=== PATIENT | male | born 1965 | race Caucasian/White ===

== ENCOUNTER 2016-11-06 10:17 | Emergency (ER) | payer OTHER ==
[~2016-11-06] VITALS: Ht 160 cm; Wt 59.1 kg
[2016-11-06 10:24] VITALS: Ht 160 cm; Wt 59.1 kg
[2016-11-06 11:34] VITALS: BP 122/89; PULSE 105; RESP 18; TEMP 98
--- NOTE | 2016-11-06 11:36 | ERD ---
ER Documentation Chief Complaint Date/Time DATE: 11/06/16 TIME: 11:36 Chief Complaint R39 ANXIOUS AFTER USING CRYSTAL "NOT DRUG PUT ALCOHOL" HPI Patient is a 50-year-old male with no medical problems who presents saying "I feel nervous". He was brought in by ambulance. He admits to drinking vodka and beer. He also admits to using crystal meth. He said that he drank alcohol today. He said that he used meth yesterday. He does not know the name of his primary doctor. He has no other symptoms other than feeling nervous. ROS All systems reviewed and are negative except as per history of present illness. Allergies Allergies: Coded Allergies: No Known Allergy (Unverified , 11/06/16) PMhx/Soc Medical and Surgical Hx: pt denies Medical Hx, pt denies Surgical Hx, Unable to obtain Hx Alcohol Use: No Hx Substance Use: No Hx Tobacco Use: Yes Smoking Status: Unknown if ever smoked FmHx Family History: No diabetes Physical Exam Vitals Vital Signs Date Time Temp Pulse Resp B/P Pulse Ox O2 Delivery O2 Flow Rate FiO2 11/06/16 11:34 98.0 105 18 122/89 97 Room Air 11/06/16 10:24 98.9 124 18 146/84 96 Physical Exam Const: No acute distress Head: Atraumatic Eyes: Normal Conjunctiva ENT: Normal External Ears, Nose and Mouth. Neck: Full range of motion..~ No meningismus. Resp: Clear to auscultation bilaterally Cardio: Tachycardic rate without murmur Abd: Soft, non tender, non distended. Normal bowel sounds Skin: No petechiae or rashes Back: No midline or flank tenderness Ext: No cyanosis, or edema Neur: Awake and alert Psych: Anxious Results 24 hrs Laboratory Tests Test 11/06/16 10:23 Bedside Glucose 114mg/dL [facility] EKG read by me: Rate/Rhythm: Sinus tachycardia at a rate of 118 Intervals: Normal Impression: Sinus tachycardia without evidence of ischemia Accu-Chek normal at 114 Smoking Cessation Therapy: Pt. was lectured for greater than 3 minutes on the health risks of continued smoking and the benefits of cessation. Patient is a 50-year-old male who presents with alcohol and drug abuse. I believe his symptoms of feeling nervous are related to his drug use. I do not think that he needs a further workup at this time. His EKG shows tachycardia but no sign of ischemia or arrhythmia. His Accu-Chek is normal and I doubt hypo -or hyperglycemia. The patient can return for any worsening symptoms. He should follow-up with his primary doctor or the local clinics for reevaluation within 1-2 days. He can return sooner for any worsening symptoms. He should not use illicit drugs or drink alcohol to excess in the future. Departure Diagnosis: Primary Impression: Drug use Additional Impression: Anxiety attack Condition: Fair Patient Instructions: Anxiety Reaction, Drug Abuse Referrals: [facility] Usted se bowman hecho un examen mdico de control que le indica que no est en franco condicin que requiera tratamiento urgente en el Departamento de Emergencia. Un estudio ms profundo y el tratamiento de grider condicin pueden esperar sin ningn riesgo hasta que usted sea atendida/o en el consultorio de grider mdico o franco cl magan. Es responsabilidad suya arreglar franco oleg para el seguimiento del kandi. MANEJO DE CONDICIONES NO URGENTES EN EL FUTURO 1) Si usted tiene un mdico de atencin primaria: Usted debera llamar a grider mdico de atencin primaria antes de venir al departamento de emergencia. Despus de las horas de consultorio, grider doctor o grider asociado/a est disponible por telfono. El mdico o enfermero de tiffanie en el servicio telefnico puede asesorarle por arpan medio para atender el problema, o kandi contrario se puede programar franco oleg. 2) Si usted no tiene un mdico de atencin primaria: Llame al mdico o clnica de referencia que aparece abajo ruth ann las horas de consultorio para hacer franco oleg para que le vean. CLINICAS: [facility] [phone] [address] [facility] [phone] [address] [facility] [[email or web address]] [phone] [facility] [phone] [facility] [phone] [address] [facility]. [phone] [address] Additional Instructions: Llame al doctor MAANA y radha franco OLEG PARA DENTRO DE 1-2 DOTY.Dgale a la secretaria que nosotros le instruimos hacer esta oleg.Avise o llame si grider condicin se empeora antes de la oleg. Regresa aqui si peor o no mejor. ANISHA BERMAN MD Nov 06, 2016 11:36
== END 2016-11-06 11:41 | disposition home or self-care (01) ==
LOC: E/R 10:17
DX: F15.90 Other stimulant use, unspecified, uncomplicated (principal); Z87.891 Personal history of nicotine dependence
CPT/HCPCS: 82962; 93005; Z7502